=== PATIENT | male | born 1970 | race African-American/Black ===

== ENCOUNTER 2020-12-28 08:29 | Inpatient (IN) | payer OTHER ==
[~2020-12-28] VITALS: Ht 185.4 cm; Wt 115.7 kg
[2020-12-28] MEDS ORDERED: SODIUM CHLORIDE 0.9% 1,000 ML IV ONE (09:00)
[2020-12-28 09:31] LABS: BASOPHILS % 0.2 % (0.0-2.0); EOSINOPHILS % 1.1 % (0.0-5.0); HEMATOCRIT. 40.3 % (42.0-52.0); HEMOGLOBIN. 13.5 g/dL (14.0-18.0); LYMPHOCYTES % 15.1 % (20.0-50.0); MEAN CORPUSCULAR HEMOGLOBIN 28.9 pg (28.0-32.0); MEAN CORPUSCULAR VOLUME 86.1 fL (80.0-94.0); MEAN PLATELET VOLUME 10.2 fl (7.4-10.4); MONOCYTES % 5.8 % (2.0-8.0); NEUTROPHILS % 77.8 % (40.0-76.0); PLATELET 306 x1000/uL (130-400); RED BLOOD CELL COUNT 4.68 mill/uL (4.7-6.1); RED CELL DISTRIBUTION WIDTH 19.5 % (11.6-14.6)
[2020-12-28 09:37] LABS: CHLORIDE 106 mEq/L (98-107)
[2020-12-28 09:39] LABS: INR 0.9
[2020-12-28 09:46] LABS: CREATINE KINASE 142 IU/L (39-308)
[2020-12-28 11:24] LABS: CLARITY URINE CLEAR (CLEAR); COLOR URINE DARK YELLOW (YELLOW); KETONES URINE NEGATIVE (NEGATIVE); LEUKOCYTE ESTERASE URINE TRACE (NEGATIVE); NITRITE URINE NEGATIVE (NEGATIVE); OCCULT BLOOD URINE NEGATIVE (NEGATIVE); PH URINE 5.5 (4.5-8.0); PROTEIN URINE NEGATIVE (NEGATIVE); SPECIFIC GRAVITY URINE 1.017 (1.005-1.030)
[2020-12-28] MEDS ORDERED: IPRATROPIUM/ALBUTEROL 0.5-3(2.5)MG/3ML NEB NEB PRN (14:30)
[2020-12-28] MEDS ORDERED: ONDANSETRON HCL 4MG/2ML INJ IV PRN (14:30)
[2020-12-28] MEDS ORDERED: MORPHINE SULFATE 2 MG/ML CPJ (NOT FOR IM USE) IV PRN (14:30)
[2020-12-28] MEDS ORDERED: LORAZEPAM 2MG/ML CPJ IV PRN (14:30)
[2020-12-28] MEDS ORDERED: DIPHENHYDRAMINE 50MG/ML VIAL IV PRN (14:30)
[2020-12-28] MEDS: PANTOPRAZOLE SODIUM 40 MG/VIAL IV SCH (15:16)
[2020-12-28] MEDS: DEXT 5%/0.45% NACL 1000ML 1,000 ML IV SCH (15:16)
[2020-12-28] MEDS ORDERED: PIPERACILLIN/TAZ 3.375G PREMIX 50 ML IV NR (15:30)
[2020-12-28 21:08] VITALS: BP 126/80
[2020-12-28 22:38] VITALS: BP 126/80
[2020-12-29] VITALS: BP 116/67
[2020-12-29] MEDS: PIPERACILLIN/TAZOBACTAM 3.375 G in DEXTROSE 5% WATER 50 ML IV SCH ×2 (00:01→06:59)
[2020-12-29] MEDS: DEXT 5%/0.45% NACL 1000ML 1,000 ML IV SCH ×3 (00:55→21:18)
[2020-12-29 04:00] VITALS: BP 129/71
[2020-12-29] MEDS ORDERED: Amlodipine PO (05:34)
[2020-12-29] MEDS ORDERED: LOSA1TAB37 MT (05:34)
[2020-12-29 06:58] LABS: CHLORIDE 106 mEq/L (98-107)
[2020-12-29 07:00] LABS: BASOPHILS % 0.3 % (0.0-2.0); EOSINOPHILS % 2.8 % (0.0-5.0); HEMOGLOBIN. 12.1 g/dL (14.0-18.0); MEAN CORPUSCULAR HEMOGLOBIN 28.9 pg (28.0-32.0); MEAN CORPUSCULAR VOLUME 85.8 fL (80.0-94.0); MEAN PLATELET VOLUME 10.5 fl (7.4-10.4); MONOCYTES % 7.9 % (2.0-8.0); PLATELET 267 x1000/uL (130-400); RED BLOOD CELL COUNT 4.19 mill/uL (4.7-6.1); RED CELL DISTRIBUTION WIDTH 19.2 % (11.6-14.6)
[2020-12-29 07:10] LABS: T4 FREE 1.01 ng/dL (0.76-1.46)
[2020-12-29 07:11] LABS: HDL CHOLESTEROL 18 mg/dL (40-59); LDL CHOLESTEROL 271 mg/dL (5-100)
[2020-12-29 08:00] VITALS: BP 128/87
[2020-12-29] MEDS: PANTOPRAZOLE SODIUM 40 MG/VIAL IV SCH (09:55)
[2020-12-29 12:00] VITALS: BP 125/74
[2020-12-29] MEDS: PIPERACILLIN/TAZOBACTAM 3.375G in DEXT 5% WATER 50ML IV SCH ×2 (14:41→21:18)
[2020-12-29 16:00] VITALS: BP 122/85
[2020-12-29] MEDS: ENOXAPARIN 30MG/0.3ML SYR SUBCUT SCH (18:09)
[2020-12-29 20:00] VITALS: BP 129/84
[2020-12-30] VITALS: BP 111/59
[2020-12-30 04:00] VITALS: BP 107/62
[2020-12-30] MEDS: DEXT 5%/0.45% NACL 1000ML 1,000 ML IV SCH ×2 (06:18→16:14)
[2020-12-30] MEDS: ENOXAPARIN 30MG/0.3ML SYR SUBCUT SCH ×2 (06:19→17:34)
[2020-12-30] MEDS: PIPERACILLIN/TAZOBACTAM 3.375G in DEXT 5% WATER 50ML IV SCH ×3 (06:19→21:26)
[2020-12-30 07:24] LABS: BASOPHILS % 0.6 % (0.0-2.0); EOSINOPHILS % 3.2 % (0.0-5.0); HEMATOCRIT. 37.2 % (42.0-52.0); HEMOGLOBIN. 12.5 g/dL (14.0-18.0); LYMPHOCYTES % 24.2 % (20.0-50.0); MEAN CORPUSCULAR VOLUME 86.6 fL (80.0-94.0); MEAN PLATELET VOLUME 10.5 fl (7.4-10.4); MONOCYTES % 8.5 % (2.0-8.0); NEUTROPHILS % 63.5 % (40.0-76.0); PLATELET 283 x1000/uL (130-400)
[2020-12-30 07:27] LABS: CHLORIDE 105 mEq/L (98-107)
[2020-12-30 08:17] VITALS: BP 113/64
[2020-12-30] MEDS: PANTOPRAZOLE SODIUM 40 MG/VIAL IV SCH (08:49)
[2020-12-30 11:58] VITALS: BP 140/93
[2020-12-30 16:00] VITALS: BP 135/74
[2020-12-30 20:00] VITALS: BP 127/68
[2020-12-31] VITALS: BP 111/56
[2020-12-31 04:00] VITALS: BP 109/57
[2020-12-31] MEDS: DEXT 5%/0.45% NACL 1000ML 1,000 ML IV SCH ×2 (05:51→12:22)
[2020-12-31] MEDS: PIPERACILLIN/TAZOBACTAM 3.375G in DEXT 5% WATER 50ML IV SCH (05:51)
[2020-12-31] MEDS: ENOXAPARIN 30MG/0.3ML SYR SUBCUT SCH (05:52)
[2020-12-31 07:24] LABS: BASOPHILS % 0.6 % (0.0-2.0); HEMATOCRIT. 35.5 % (42.0-52.0); LYMPHOCYTES % 26.6 % (20.0-50.0); MEAN CORPUSCULAR HEMOGLOBIN 28.9 pg (28.0-32.0); MEAN CORPUSCULAR VOLUME 85.6 fL (80.0-94.0); MEAN PLATELET VOLUME 10.5 fl (7.4-10.4); MONOCYTES % 7.3 % (2.0-8.0); NEUTROPHILS % 62.5 % (40.0-76.0); PLATELET 276 x1000/uL (130-400); RED BLOOD CELL COUNT 4.14 mill/uL (4.7-6.1)
[2020-12-31 07:28] LABS: CHLORIDE 106 mEq/L (98-107)
[2020-12-31 08:00] VITALS: BP 112/82
[2020-12-31] MEDS: PANTOPRAZOLE SODIUM 40 MG/VIAL IV SCH (08:55)
[2020-12-31 12:00] VITALS: BP 136/83
[2020-12-31 12:42] VITALS: BP 136/83
[2020-12-31 12:42] LABS: HEPATITIS B SURFACE ANTIGEN NEGATIVE
== END 2020-12-31 13:35 | disposition home or self-care (01) | DRG 446 ==
LOC: ER 08:29 → 6WST 14:00 → EDBEDREQ 14:15 → SUPCPDRO 14:48 → EDBEDREQSVC 14:50 → ENRESERV 14:52
PROVIDERS: ADMIT Internal Medicine; ATTEND Internal Medicine
DX: K83.1 Obstruction of bile duct (principal); K83.8 Other specified diseases of biliary tract; D72.829 Elevated white blood cell count, unspecified; D64.9 Anemia, unspecified; G47.00 Insomnia, unspecified; E78.5 Hyperlipidemia, unspecified; Z20.822 Contact with and (suspected) exposure to COVID-19; R74.01 Elevation of levels of liver transaminase levels; E66.9 Obesity, unspecified; K76.0 Fatty (change of) liver, not elsewhere classified; I10 Essential (primary) hypertension; K21.9 Gastro-esophageal reflux disease without esophagitis; Z68.33 Body mass index [BMI] 33.0-33.9, adult; Z82.49 Family history of ischemic heart disease and other diseases of the circulatory system
CPT/HCPCS: 36415; 71045; 74181; 76705; 80053; 80061; 80076; 81003; 82105; 82140; 82248; 82378; 82550; 83735; 83880; 84439; 84443; 84484; 85025; 86301; 86705; 86709; 86803; 87340; 87426; 93005; 93306; 93970; 99285; C9113; J1200; J1650; J2060; J2543; J7030; J7060